=== PATIENT | male | born 1980 | race African-American/Black ===

== ENCOUNTER 2024-09-16 01:23 | Emergency (ER) | payer SELFPAY ==
[~2024-09-16] VITALS: Ht 182.9 cm; Wt 95.3 kg
[2024-09-16 01:56] VITALS: TEMP 98.6
[2024-09-16] MEDS ORDERED: KETOROLAC TROMETHAMINE INJ 60 MG/2 ML VIAL IM ONE ×2 (02:21→02:30)
[2024-09-16] MEDS ORDERED: DIAZEPAM 5 MG TABLET ONE (02:21)
[2024-09-16] MEDS ORDERED: DIAZEPAM 5 MG TABLET PO ONE (02:30)
[2024-09-16] MEDS: KETOROLAC TROMETHAMINE 15 MG/ML VIAL IV ONE (02:36)
[2024-09-16] MEDS ORDERED: ONDANSETRON HCL/PF 4 MG/2 ML VIAL ONE (02:38)
[2024-09-16] MEDS ORDERED: PANTOPRAZOLE 40 MG VIAL ONE (02:38)
[2024-09-16] MEDS ORDERED: DIAZEPAM 5 MG/ML 2 ML DISP.SYRIN ONE (02:39)
[2024-09-16 02:42] LABS: BASOPHILS % (AUTO) 0.8 % (0.0-2.0); EOSINOPHILS % (AUTO) 0.5 % (0.0-6.0); HEMATOCRIT 43 % (39-51); LYMPHOCYTES # (AUTO) 1.8 K/uL (0.8-4.8); LYMPHOCYTES % (AUTO) 33.7 % (20.0-44.0); MEAN CORPUSCULAR HEMOGLOBIN 31 PG (26.0-33.0); MEAN CORPUSCULAR HGB CONC 33 g/dl (31.0-36.0); MEAN CORPUSCULAR VOLUME 95 fL (80-96); MONOCYTES # (AUTO) 0.4 K/uL (0.1-1.30); NEUTROPHILS # (AUTO) 3.1 K/uL (1.8-8.9); PLATELET COUNT (AUTO) 158 K/uL (150-450); RED BLOOD CELL COUNT(AUTO) 4.52 MIL/uL (4.5-6.0); RED CELL DISTRIBUTION WIDTH 14.1 % (11.5-15.0); WHITE BLOOD COUNT (AUTO) 5.5 K/uL (4.3-11.0)
[2024-09-16] MEDS: PANTOPRAZOLE 40 MG VIAL IV ONE (02:49)
[2024-09-16] MEDS: IV NS 0.9% 1,000 ML BAG IV ONE (02:49)
[2024-09-16] MEDS: DIAZEPAM 5 MG/ML 2 ML DISP.SYRIN IV ONE (02:49)
[2024-09-16] MEDS: ONDANSETRON HCL/PF 4 MG/2 ML VIAL IVP ONE (02:49)
[2024-09-16 02:59] LABS: ALBUMIN 4.4 g/dL (3.4-5.0); BILIRUBIN,DIRECT 0.1 mg/dL (0.0-0.2); BILIRUBIN,TOTAL 0.3 mg/dL (0.2-1.0); CALCIUM, SERUM 9.2 mg/dL (8.5-10.1); POTASSIUM 4.2 mmol/L (3.5-5.1); TOTAL PROTEIN, SERUM 7.7 g/dL (6.4-8.2)
[2024-09-16] MEDS ORDERED: HALOPERIDOL LACTATE INJ 5 MG/ML VIAL ONE (03:04)
[2024-09-16] MEDS: HALOPERIDOL LACTATE INJ 5 MG/ML VIAL IV ONE (03:08)
[2024-09-16] MEDS ORDERED: CT SWABBABLE VALVE TRANS SET 1 EA INFUS.SET MC ONE (03:40)
[2024-09-16] MEDS ORDERED: IOHEXOL-300 100 ML VIAL IV ONE (03:40)
[2024-09-16 04:09] LABS: AMPHETAMINE, URINE NEGATIVE (NEGATIVE); BARBITURATE, URINE NEGATIVE (NEGATIVE); BENZODIAZEPINE, URINE NEGATIVE (NEGATIVE); CANNABINOID, URINE NEGATIVE (NEGATIVE); COCCAINE, URINE NEGATIVE (NEGATIVE); OPIATE, URINE NEGATIVE (NEGATIVE); PHENCYCLIDINE SCREEN,URINE NEGATIVE (NEGATIVE)
[2024-09-16 05:18] VITALS: BP 119/64; O2SAT 96
[2024-09-16] MEDS ORDERED: IBUP-1953 PO (05:26)
[2024-09-16] MEDS ORDERED: ONDA4TAB5 PO (05:26)
[2024-09-16] MEDS ORDERED: POLY119P3 PO (05:26)
== END 2024-09-16 05:35 | disposition home or self-care (01) ==
LOC: ER 01:27
DX: G89.29 Other chronic pain (principal); M54.50 Low back pain, unspecified; R10.32 Left lower quadrant pain; K59.00 Constipation, unspecified; E86.0 Dehydration; R11.10 Vomiting, unspecified
CPT/HCPCS: 99285; 96374; 96361; 96375; 72131; 74177; 85025; 80048; 83690; 80076; 36415; 80320; 80307; J3360; J1630; J1885; J2405; J7030; J2470; Q9967; G0480

== ENCOUNTER 2024-09-22 21:01 | Emergency (ER) | payer OTHER ==
[~2024-09-22] VITALS: Ht 175.3 cm; Wt 74.8 kg
[~2024-09-22 21:01] MED LIST: IBUP-1953 PO; ONDA4TAB5 PO; POLY119P3 PO
[2024-09-22 21:15] VITALS: BP 125/86; TEMP 98; O2SAT 98
[2024-09-22] MEDS: KETOROLAC TROMETHAMINE 15 MG/ML VIAL IM ONE (21:38)
== END 2024-09-22 21:50 | disposition home or self-care (01) ==
LOC: ER 21:09
DX: G89.29 Other chronic pain (principal); M54.50 Low back pain, unspecified; Z88.5 Allergy status to narcotic agent
CPT/HCPCS: 99283; 96372; J1885